=== PATIENT | female | born 1985 | race Caucasian/White ===

== ENCOUNTER 2017-09-27 10:07 | Emergency (ER) | payer SELFPAY ==
[2017-09-27 10:15] VITALS: BMI 31.6
--- NOTE | 2017-09-27 10:33 | DR.GENAD ---
HPI - PCP Primary Care Physician: NFD - HPI Comment HPI Comment: SEIZURE DISORDER. CURRRENTLY NOT ON MED PAST 6 MONTHS. HAD 5 SEIZURES TODAT. CHEST HURTING. NO FEVER OR URI SYMTOMS. - Complaint/Symptoms Chief Complaint Doctors Comments: CHEST PAIN, REPEATED SEIZURE. Chief Complaint:: PATIENT SHE HAD MULTIPLE SEIZURES YESTERDAY AND LAST NGHT, THEN WHEN SHE WOKE UP THIS MORNING HER CHEST STARTED HURTING. - Nurses notes reviewed Nurses Notes Review: Yes - Source History Provided: Patient - Mode of Arrival Mode of Arrival: Ambulatory - Timing Onset of Chief Complaint: 09/26/17 - Duration Duration: Constant Duration: Hours PMH - PMH Past Medical History: Yes Past Medical History: Seizures Past Medical History Comment: POTS Past Surgical History: Yes Surgical History: Appendectomy, Cholecystectomy - Family History History of Family Medical Conditions: No - Social History Does patient currently use any type of tobacco product: No Have you used tobacco products in the last 12 months: No Type of Tobacco Use: None Does any household member use tobacco: No Alcohol Use: None Do you use any recreational Drugs:: No Lives With: Family Lives Where: Home - infectious screening In the last 2 months have you had wt loss of >10#?: NO Have you had fever, night sweats or hemotysis?: No Have you traveled outside the country in the last 6 months?: No Isolation: Standard ROS - Review of Systems Constitutional: Weakness, Fatigue. negative: Chills, Fever Eyes: No Symptoms Reported, Blurred Vision, Photophobia. negative: Eye Pain, Discharge ENTM: No Symptoms Reported. negative: Ear Discharge, Nose Discharge, Nose Congestion, Throat Pain Respiratoy: No Symptoms Reported. negative: Productive Cough, Non-Productive Cough, Short of Breath, Wheezing, Hemoptysis Cardiovascular: Chest Pain. negative: Edema Gastrointestinal/Abdominal: Nausea, Vomiting. negative: Abdominal Pain Genitourinary: negative: Dysuria, Frequency, Hematuria Neurological: Headache, Seizure, Weakness, Dizziness Musculoskeletal: Muscle Pain Integumentary: No Symptoms Reported Hematologic/Lymphatic: No Symptoms Reported Endocrine: No Symptoms Reported All Other Systems: Reviewed and Negative PE - Vital Signs Vitals: Temperature 98.3 F Pulse Rate [Right Brachial] 77 Pulse Rate 96 Respiratory Rate 16 Blood Pressure [Right Arm] 110/75 Blood Pressure 111/76 O2 Sat by Pulse Oximetry 98 - General Limitations: No Limitations General Appearance: Alert - Head Head Exam: Normal Inspection - Eyes Eye exam: Normal Appearance - ENT ENT Exam: Normal External Ear Exam External Ear Exam: Normal External Inspection TM/Canal Exam: Bilateral Normal Nose Exam: Normal Nose Exam Mouth Exam: Normal Inspection Throat Exam: Normal Inspection - Neck Neck Exam: Trachea Midline - Chest Chest Inspection: Symmetric Chest Wall Rise - Respiratory Respiratory Exam: Normal Lung Sounds Bilat Respiratory Exam: Bilateral Clear to Auscultation - Cardiovascular Cardiovascular Exam: Regular Rate, Normal Rhythm, Normal Heart Sounds - Abdominal Exam Abdominal Exam: Normal Bowel Sounds, Soft. negative: Tenderness - Extremities Extremities Exam: Normal Inspection - Back Back Exam: Normal Inspection - Neurologic Neurological Exam: Alert, Oriented X3, CN II-XII Intact, Normal Gait, Reflexes Normal. negative: Motor Sensory Deficit - Psychiatric Psychiatric Exam: Normal Affect, Normal Mood - Skin Skin Exam: Normal Color MDM - Differential Diagnosis Differential Diagnosis: REPEATED SEIZURE, HEADACHE, CHEST PAIN Course - Treatment Treatment: SEE ORDERS. DEPAKOTE 500MG PO IN ED. NO SEIZURE NOTED IN ED. - Consultation Consultation Comments: DISCUSS PATIENT WITH DR. WALTER. HE WILL SEE PATIENT IN THE OFFICE IN [place] TOMORROW. - Education/Counseling Education/Counseling: Patient, Education Educated On: Treatment, Diagnosis, Needs for Follow Up ROR - Labs Reviewed Laboratory Results Reviewed?: Yes Result Diagrams: 09/27/17 10:35 09/27/17 10:35 Laboratory: WBC 8.3 X10^3/uL (3.6-10.0) 09/27/17 10:35 RBC 4.89 X10^6/uL (3.5-5.4) 09/27/17 10:35 Hgb 13.8 g/dL (12.0-16.0) 09/27/17 10:35 Hct 40.5 % (36.0-47.0) 09/27/17 10:35 MCV 82.7 fL (80.0-100.0) 09/27/17 10:35 MCH 28.2 pg (27.0-34.0) 09/27/17 10:35 MCHC 34.1 g/dL (33.0-35.0) 09/27/17 10:35 RDW 13.2 % (11.6-16.5) 09/27/17 10:35 Plt Count 222 X10^3/uL (150.0-450.0) 09/27/17 10:35 MPV 7.8 fL (7.4-11.0) 09/27/17 10:35 Neut % 79.0 % (42.0-75.0) H 09/27/17 10:35 Lymph % 14.1 % (21.0-51.0) L 09/27/17 10:35 [place] % 5.5 % (0.0-13.0) 09/27/17 10:35 Eos % 0.7 % (0.9-2.9) L 09/27/17 10:35 Baso % 0.7 % (0.2-1.0) 09/27/17 10:35 Neut # 6.5 x10^3/uL (2.2-4.8) H 09/27/17 10:35 Lymph # 1.2 X10^3/uL (1.3-2.9) L 09/27/17 10:35 [place] # 0.5 x10^3/uL (0.3-0.8) 09/27/17 10:35 Eos # 0.1 x10^3/uL (0.0-0.2) 09/27/17 10:35 Baso # 0.1 X10^3/uL (0.0-0.1) 09/27/17 10:35 Absolute Nucleated RBC 0.0 /100WBC 09/27/17 10:35 Sodium 139 mmol/L (136-145) 09/27/17 10:35 Corrected Sodium TNP 09/27/17 10:35 Potassium 4.0 mmol/L (3.5-5.1) 09/27/17 10:35 Chloride 105 mmol/L (98-107) 09/27/17 10:35 Carbon Dioxide 25.8 mmol/L (21-32) 09/27/17 10:35 BUN 11 mg/dL (7-18) 09/27/17 10:35 Creatinine 1.01 mg/dL (0.55-1.02) 09/27/17 10:35 Est GFR (MDRD) Af Amer > 60 (>60) 09/27/17 10:35 Est GFR (MDRD) Non-Af > 60 (>60) 09/27/17 10:35 Glucose 103 mg/dL (65-99) H 09/27/17 10:35 Calcium 9.3 mg/dL (8.5-10.1) 09/27/17 10:35 Corrected Calcium TNP 09/27/17 10:35 Magnesium 1.8 mg/dL (1.7-2.9) 09/27/17 10:35 Total Bilirubin 0.80 mg/dL (0.2-1.0) 09/27/17 10:35 AST 23 Units/L (15-37) 09/27/17 10:35 ALT 16 Units/L (12-78) 09/27/17 10:35 Alkaline Phosphatase 80 Units/L (46-116) 09/27/17 10:35 Creatine Kinase 30 Units/L (26-192) 09/27/17 10:35 CK-MB (CK-2) < 1.0 ng/mL (0-4.0) 09/27/17 10:35 CK/CKMB % Calc 3.3 % (<4) 09/27/17 10:35 Troponin I < 0.02 ng/mL (0-1.5) 09/27/17 10:35 Total Protein 8.0 g/dL (6.4-8.2) 09/27/17 10:35 Albumin 3.7 g/dL (3.4-5.0) 09/27/17 10:35 Globulin 4.3 g/dL (2.5-4.5) 09/27/17 10:35 Albumin/Globulin Ratio 0.9 Ratio (1.1-2.1) L 09/27/17 10:35 Specimen Type Clean catch urine 09/27/17 10:46 Urine Color Yellow (YELLOW) 09/27/17 10:46 Urine Appearance Hazy (CLEAR) 09/27/17 10:46 Urine pH 8.0 (5.0 - 8.0) 09/27/17 10:46 Ur Specific [place] 1.010 (1.000-1.030) 09/27/17 10:46 Urine Protein Negative (NEGATIVE) 09/27/17 10:46 Urine Glucose (UA) Negative (NEGATIVE) 09/27/17 10:46 Urine Ketones Negative (NEGATIVE) 09/27/17 10:46 Urine Occult Blood Negative (NEGATIVE) 09/27/17 10:46 Urine Nitrite Negative (NEGATIVE) 09/27/17 10:46 Urine Bilirubin Negative (NEGATIVE) 09/27/17 10:46 Urine Urobilinogen Normal (NORMAL) 09/27/17 10:46 Ur Leukocyte Esterase 1+ (NEGATIVE) 09/27/17 10:46 Urine RBC None seen /HPF (NEGATIVE) 09/27/17 10:46 Urine WBC 5-10 /HPF (NEGATIVE) 09/27/17 10:46 Ur Squamous Epith Cells Moderate /HPF (NEGATIVE) 09/27/17 10:46 Urine Bacteria 1+ /HPF (NEGATIVE) 09/27/17 10:46 Ur Culture Indicated? Yes/culture set up 09/27/17 10:46 Urine Opiates Screen Negative (NEG=<300) 09/27/17 10:46 Urine Methadone Screen Negative (NEG=<300) 09/27/17 10:46 Ur Barbiturates Screen Negative (NEG=<200) 09/27/17 10:46 Ur Phencyclidine Scrn Negative (NEG=<25) 09/27/17 10:46 Ur Amphetamines Screen Negative (NEG=<1000) 09/27/17 10:46 U Benzodiazepines Scrn Negative (NEG=<200) 09/27/17 10:46 Urine Cocaine Screen Negative (NEG=<300) 09/27/17 10:46 U Marijuana (THC) Screen Positive (NEG=<50) A 09/27/17 10:46 - XRAY XRAY Interpreted by: Radiologist XRAY Findings: REPORT DISCUSS WITH PATIENT. - EKG Rhythm: NSR (EKG NOTED) - Diagnosis Discharge Problem: Seizure - Discharge Plan Disposition: 01 HOME, SELF-CARE Condition: Stable Prescriptions: Divalproex Sodium [Depakote ER] 500 mg PO BID #60 tab - Follow ups/Referrals Follow ups/Referrals: NFD,None [Primary Care Provider] - 3 days TRACY KENNEY [STAFF PHYSICIAN] - 3 days ROSEMARIE WALTER [STAFF PHYSICIAN] - 09/28/17 - Instructions Instructions: Seizure, Adult, [id number], Chest Pain Observation Additional Instructions: RETURN TO ED IF WORSE.
--- NOTE | 2017-09-27 10:46 | RAD ---
Examination: AP chest History: Seizures, chest pain Findings: Frontal view of the chest demonstrates normal heart size with clear lungs and pleural space s. Impression: No acute or significant abnormality demonstrated. Reported By:
[2017-09-27 10:47] LABS: BASOPHILS # (AUTO) 0.1 X10^3/uL (0.0-0.1); BASOPHILS % (AUTO) 0.7 % (0.2-1.0); EOSINOPHILS # (AUTO) 0.1 x10^3/uL (0.0-0.2); EOSINOPHILS % (AUTO) 0.7 % (0.9-2.9); HEMATOCRIT 40.5 % (36.0-47.0); HEMOGLOBIN 13.8 g/dL (12.0-16.0); LYMPHOCYTES # (AUTO) 1.2 X10^3/uL (1.3-2.9); LYMPHOCYTES % (AUTO) 14.1 % (21.0-51.0); MEAN CORPUSCULAR HEMOGLOBIN 28.2 pg (27.0-34.0); MEAN CORPUSCULAR HGB CONC 34.1 g/dL (33.0-35.0); MEAN CORPUSCULAR VOLUME 82.7 fL (80.0-100.0); MEAN PLATELET VOLUME 7.8 fL (7.4-11.0); MONOCYTES # (AUTO) 0.5 x10^3/uL (0.3-0.8); MONOCYTES % (AUTO) 5.5 % (0.0-13.0); NEUTROPHILS # (AUTO) 6.5 x10^3/uL (2.2-4.8); PLATELET COUNT 222 X10^3/uL (150.0-450.0); RED BLOOD COUNT 4.89 X10^6/uL (3.5-5.4); RED CELL DISTRIBUTION WIDTH 13.2 % (11.6-16.5); WHITE BLOOD COUNT 8.3 X10^3/uL (3.6-10.0)
[2017-09-27 11:00] LABS: BLOOD UREA NITROGEN 11 mg/dL (7-18); CALCIUM 9.3 mg/dL (8.5-10.1); CARBON DIOXIDE 25.8 mmol/L (21-32); CHLORIDE 105 mmol/L (98-107); CREATINE KINASE 30 Units/L (26-192); CREATININE 1.01 mg/dL (0.55-1.02); SODIUM 139 mmol/L (136-145); eGFR BLACK RACES > 60 (>60); eGFR NON BLACK RACES > 60 (>60)
[2017-09-27 11:04] VITALS: BP 110/75
[2017-09-27 11:07] LABS: BILIRUBIN,URINE NEGATIVE (NEGATIVE); BLOOD/HEMOGLOBIN,URINE NEGATIVE (NEGATIVE); GLUCOSE, URINE NEGATIVE (NEGATIVE); KETONES,URINE NEGATIVE (NEGATIVE); LEUKOCYTE ESTERASE ,URINE 1+ (NEGATIVE); NITRITES,URINE NEGATIVE (NEGATIVE); PROTEIN,URINE NEGATIVE (NEGATIVE); UROBILINOGEN,URINE NORMAL (NORMAL)
[2017-09-27 11:08] LABS: APPEARANCE,URINE HAZY (CLEAR); COLOR,URINE YELLOW (YELLOW); RBC,URINE NONE SEEN /HPF (NEGATIVE)
[2017-09-27 11:09] LABS: BACTERIA,URINE 1+ /HPF (NEGATIVE); SQUAMOUS EPITHELIAL CELL,UR MODERATE /HPF (NEGATIVE)
--- NOTE | 2017-09-27 11:32 | CT ---
HISTORY: Seizures Study: CT of the head Comparison: None Technique: Serial axial images were obtained from the skullbase to the vertex without infusion of IV contrast. Findings: The ventricles, sulci, and cisterns are unremarkable in appearance. No evidence of acute intracranial hemorrhage is appreciated. No definite intra or extra-axial fluid collections are noted. No evidence of abnormal mass or significant midline shift is appreciated on this noncontrast exam. The visualize d paranasal sinuses are grossly unremarkable. If symptoms or clinical concern persist recommend rodger nued follow-up further evaluation. IMPRESSION: No CT evidence of acute intracranial abnormality is appreciated. Reported By:
[2017-09-27 12:15] LABS: CKMB % 3.3 % (<4); CREATINE KINASE MB < 1.0 ng/mL (0-4.0)
[2017-09-27 12:28] LABS: TROPONIN I < 0.02 ng/mL (0-1.5)
[2017-09-27] MEDS ORDERED: DEPAKOTE ER PO ONE (13:16)
[2017-09-27 19:27] LABS: ALANINE AMINOTRANSFERASE 16 Units/L (12-78); ALKALINE PHOSPHATASE 80 Units/L (46-116); ASPARTATE AMINO TRANSFERASE 23 Units/L (15-37)
[2017-09-27 19:28] LABS: ALBUMIN 3.7 g/dL (3.4-5.0)
== END 2017-09-27 13:43 | disposition home or self-care (01) ==
LOC: ER 10:27
DX: R56.9 Unspecified convulsions (principal)
CPT/HCPCS: 36415; 70450; 71010; 80053; 80307; 81001; 82550; 82553; 83735; 84484; 85025; 87086; 93005; 93010; 99282; 99283; G0434